=== PATIENT | male | born 1960 | race Caucasian/White ===

== ENCOUNTER 2020-09-20 14:17 | Emergency (ER) | payer BC, OTHER ==
--- OUTSIDE RECORDS SUMMARY | 2020-09-20 14:19 | XMS REPORT | Continuity of Care Document ---
:1960 Author Organization [facility] t Address [address] [place] [address] Care Team Providers Name Role Phone Asked, Pcp Primary Care Physician Unavailable Keren MCGRATH Attending Clinician 2, Lab Attending Clinician Unavailable Doctor Unassigned, Name Attending Clinician Unavailable Problems Condition Condition Condition Status Onset Resolution Last Treating Co mments Source Name Details Category Date Date Treatment Clinician Date Status Status Disease Active Methodi post left post left 7-19 st hip hip 00:00: Hospita replacemen replacemen 00 l t t Arthritis Arthritis Disease Active Met hodi of left of left 6-28 st hip hip 00:00: Hospita 00 l Allergies, Adverse Reactions, Alerts Allergy Allergy Status Severity Reaction(s) Onset Inactive Treating Comm ents Source Name Type Date Date Clinician Ragweed Propensi Active Unknown Method i Pollen ty to Reaction 5-19 st adverse 00:00: Hospita reaction 00 l s to drug Lisinopr Propensi Active Other (See 2014-02 Me thodi il ty to Comments) 2- st adverse 00:00: Hospita reaction 00 l s to drug Losartan Propensi Active Other (See 2014-02 Me thodi ty to Comments) 2-14 st adverse 00:00: Hospita reaction 00 l s to drug Iodine Propensi Active Swelling Pt states Met hodi ty to 8-[address] adverse 00:00: allergic Hospita reaction 00 to shrimp l s to (lips & drug mouth swell), but states topical iodine is not a problem Social History Social Habit Start Date Stop Date Quantity Comments Source Tobacco use and 2019-07-12 2019-07-12 Never used [facility] 00:00:00 00:00:00 Hospital Alcohol intake 2019-07-12 2019-07-12 Current drinker [facility] dist 00:00:00 00:00:00 of alcohol Hospital (finding) Sex Assigned At [birth year] [facility] 00:00:00 00:00:00 Hospital Smoking Status Start Date Stop Date Source Never smoker [facility] Medications Ordered Filled Start Stop Current Ordering Indication Dosage Frequency Signature Comments Components Source Medication Medication Date Date Medication? Clinician (SIG) Name Name testyoon Yes Q14D Inject Meth yamileth e cypionate 08-[address] (DEPOTESTOT 18:36: shoulder, H ospita ERONE 21 thigh, or l CYPIONATE) buttocks 200 mg/mL every 14 injection (fourteen) days. doxazosin Yes 4mg QD Take 4 mg Met hodi (CARDURA) [address] MG tablet 18:36: nightly. Hosp suzie 21 l UNABLE TO Yes adipax for Me thodi FIND [address] 18:36: Hospita 21 l citalopram Yes 20mg QD Take 20 mg M ethodi (CeleXA) 20 7-[address] MG tablet 18:36: daily. Hospit a 21 l Procedures This patient has no known procedures. Plan of Care Planned Activity Planned Date Details Comments Source Future Scheduled Test COVID-19 VACCINE (1) [facility] [code = COVID-19 VACCINE (1)] Future Scheduled Test Hepatitis C screening [facility] (procedure) [code = 653887287] Future Scheduled Test COLONOSCOPY SCREENING [facility] [code = COLONOSCOPY SCREENING] Future Scheduled Test SHINGLES VACCINES (#1) [facility] [code = SHINGLES VACCINES (#1)] Future Scheduled Test INFLUENZA VACCINE [code [facility] = INFLUENZA VACCINE] Encounters Start End Encounter Admission Attending Care Care Encounter Source Date/Time Date/Time Type Type Clinicians Facility Department ID 2020-09-18 2020-09-18 Patient Keren MEBAILEY 1.2.840.114 [id number] 00:00:00 00:00:00 Secure Msg Stephen Hernandez [id number] [place] [id number] Professio [phone] [address] 2020-09-05 2020-09-05 Patient [facility] 1.2.840.114 [id number] 00:00:00 00:00:00 Secure Msg Stephen Heranndez [id number] [place] [id number] Professio [phone] [address] 2020-09-04 2020-09-[facility] 1.[facility].114 [id number] 00:00:00 00:00:00 Stephen Hernandez [id number] [place] [id number] Professio [phone] [address] 2020-08-14 2020-08-14 [facility] 1.2.840.114 [id number] 07:48:15 09:36:28 ne Visit Stephen Hernandez [id number] [place] [id number] Professio [phone] [address] 2020-08-06 2020-08-06 [facility] 1.2.840.114 [id number] 00:00:00 00:00:00 Stephen Hernandez [id number] [place] [id number] Professio [phone] [address] 2020-08-01 2020-08-01 [facility] 1.2.840.114 [id number] 00:00:00 00:00:00 Secure Msg Stephen Hernandez [id number] [place] [id number] Professio [phone] [address] 2020-07-18 2020-07-18 [facility] 1.2.840.114 [id number] 08:11:00 10:04:57 ne Visit Stephen Hernandez [id number] [place] [id number] Professio [phone] [address] 2020-07-17 2020-07-17 Telephone [facility] 1.2.840.114 [id number] 00:00:00 00:00:00 Stephen Hernandez [id number] [place] [id number] Professio [phone] [address] 2020-06-19 2020-06-19 Refill [facility] 1.2.840.114 [id number] 00:00:00 00:00:00 Stephen David [id number] [place] [id number] Professio [phone] [address] 2020-06-08 2020-06-08 [facility] Grader 2, Adc Lab [facility] 1.2.840.114 [id number] 14:33:28 14:48:28 Alexus Hernandez [id number] [place] [id number] Professio [phone] [address] 2020-05-14 2020-05-14 Refill [facility] 1.2.840.114 [id number] 00:00:00 00:00:00 Stephen David [id number] [place] [id number] Professio [phone] [address] 2020-05-11 2020-05-11 Patient [facility] 1.2.840.114 [id number] 00:00:00 00:00:00 Secure Msg Stephen David [id number] [place] [id number] Professio [phone] [address] 2020-04-05 2020-04-05 Patient [facility] 1.2.840.114 [id number] 00:00:00 00:00:00 Secure Msg Stephen Hernandez [id number] [place] [id number] Professio [phone] [address] 2020-04-04 2020-04-04 Refill [facility] 1.2.840.114 [id number] 00:00:00 00:00:00 Stephen Hernandez [id number] [place] [id number] Profarsh [phone] [address] 2020-03-15 2020-03-15 Office Keren [facility] 1.2.840.114 [id number] 10:09:04 11:39:55 Visit Stephen Hernandez [id number] [place] [id number] Profarsh [id number] [address] 2020-01-23 2020-01-23 Orders Doctor JW 1.2.840.114 [id number] 00:00:00 00:00:00 Only Unassigned, OCTAVIO [id number] [place] [facility] [id number] [id number] 2019-07-12 2019-07-12 Outpatient [facility] [id number] [place] 00:00:00 00:00:[address] 2019-07-12 2019-07-12 Outpatient [facility] [id number] [place] 00:00:00 00:00:[address] Results This patient has no known results.
--- NOTE | 2020-09-20 15:00 | EDPHYS ---
Physician Documentation [facility] Name: Landry Chamberlain Jr Age: 60 yrs Sex: Male : 1960 Arrival Date: 09/20/2020 Time: 14:18 Bed 2 Private MD: ED Physician Julio Ho HPI: 09/20 14:53 This 60 yrs old Male presents to ER via EMS with complaints of Suicidal marisa Ideation. 14:53 The patient presents to the emergency department with anxiety, depression, suicide marisa ideation, and the patient has a plan, to shoot self. Onset: The symptoms/episode began/occurred 2 day(s) ago. Past psychiatric history: Prior diagnosis: depression. Associated signs and symptoms: Pertinent positives; suicide ideation. Severity of symptoms: At their worst the symptoms were moderate severe in the emergency department the symptoms are unchanged. The patient has not experienced similar symptoms in the past. Historical: - Allergies: 14:23 unknown BP med; iw - Home Meds: 14:23 citalopram oral [Active]; phentermine oral [Active]; iw - PMHx: 14:23 Anxiety; adhd; iw 14:24 enlarged prostate; iw - Immunization history:: Adult Immunizations up to date. - Family history:: not pertinent. - Social history:: Smoking status: Patient denies any tobacco usage or history of. Patient uses alcohol. ROS: 14:53 Constitutional: Negative for fever, chills, and weight loss, Eyes: Negative for injury, marisa pain, redness, and discharge, ENT: Negative for injury, pain, and discharge, Neck: Negative for injury, pain, and swelling, Cardiovascular: Negative for chest pain, palpitations, and edema, Respiratory: Negative for shortness of breath, cough, wheezing, and pleuritic chest pain, Abdomen/GI: Negative for abdominal pain, nausea, vomiting, diarrhea, and constipation, Back: Negative for injury and pain, : Negative for injury, bleeding, discharge, and swelling, MS/Extremity: Negative for injury and deformity, Skin: Negative for injury, rash, and discoloration, Neuro: Negative for headache, weakness, numbness, tingling, and seizure, Allergy/Immunology: Negative for hives, rash, and allergies, Endocrine: Negative for neck swelling, polydipsia, polyuria, polyphagia, and marked weight changes, Hematologic/Lymphatic: Negative for swollen nodes, abnormal bleeding, and unusual bruising. 14:53 Psych: Positive for anxiety, depression, suicidal ideation. Exam: 14:53 Constitutional: This is a well developed, well nourished patient who is awake, alert, marisa and in no acute distress. Head/Face: Normocephalic, atraumatic. Eyes: Pupils equal round and reactive to light, extra-ocular motions intact. Lids and lashes normal. Conjunctiva and sclera are non-icteric and not injected. Cornea within normal limits. Periorbital areas with no swelling, redness, or edema. ENT: Nares patent. No nasal discharge, no septal abnormalities noted. Tympanic membranes are normal and external auditory canals are clear. Oropharynx with no redness, swelling, or masses, exudates, or evidence of obstruction, uvula midline. Mucous membranes moist. Neck: Trachea midline, no thyromegaly or masses palpated, and no cervical lymphadenopathy. Supple, full range of motion without nuchal rigidity, or vertebral point tenderness. No Meningismus. Chest/axilla: Normal chest wall appearance and motion. Nontender with no deformity. No lesions are appreciated. Cardiovascular: Regular rate and rhythm with a normal S1 and S2. No gallops, murmurs, or rubs. Normal PMI, no JVD. No pulse deficits. Respiratory: Lungs have equal breath sounds bilaterally, clear to auscultation and percussion. No rales, rhonchi or wheezes noted. No increased work of breathing, no retractions or nasal flaring. Abdomen/GI: Soft, non-tender, with normal bowel sounds. No distension or tympany. No guarding or rebound. No evidence of tenderness throughout. Back: No spinal tenderness. No costovertebral tenderness. Full range of motion. Male : Normal genitalia with no discharge or lesions. Skin: Warm, dry with normal turgor. Normal color with no rashes, no lesions, and no evidence of cellulitis. MS/ Extremity: Pulses equal, no cyanosis. Neurovascular intact. Full, normal range of motion. Neuro: Awake and alert, GCS 15, oriented to person, place, time, and situation. Cranial nerves II-XII grossly intact. Motor strength 5/5 in all extremities. Sensory grossly intact. Cerebellar exam normal. Normal gait. 14:53 Psych: Behavior/mood is suicidal, Affect is flat, Oriented to person, place, time, Judgement / Insight is normal. 15:00 ECG was reviewed by the Attending Physician. [facility] Vital Signs: 14:30 BP 161 / 88; Pulse 84; Resp 18; Pulse Ox 100% ; bp 15:30 BP 146 / 90; Pulse 83; Resp 17; Pulse Ox 95% ; bp 22:00 BP 150 / 80; Pulse 60; Resp 18; Temp 98; Pulse Ox 99% ; ea MDM: 14:20 Patient medically screened. marisa 14:57 Differential diagnosis: depression. Data reviewed: vital signs, nurses notes, lab test [facility] result(s). Data interpreted: threat monitoring analyst: not applicable for this patient encounter. rate is 75 beats/min, rhythm is regular, Pulse oximetry: on room air is 100 %. Test interpretation: by ED physician or midlevel provider: ECG, plain radiologic studies. Counseling: I had a detailed discussion with the patient and/or guardian regarding: the historical points, exam findings, and any diagnostic results supporting the discharge/admit diagnosis, lab results, the need to transfer to another facility, for higher level of care, [facility] does not immediately have the required specialist. 09/20 14:21 Order name: Acetaminophen [facility] 09/20 14:21 Order name: Basic Metabolic Panel [facility] 09/20 14:21 Order name: CBC with Diff [facility] 09/20 14:21 Order name: ETOH Level [facility] 09/20 14:21 Order name: Hepatic Function [facility] 09/20 14:21 Order name: PT-INR; Complete Time: 16:38 [facility] 09/20 14:21 Order name: Ptt, Activated; Complete Time: 16:38 [facility] 09/20 14:21 Order name: Salicylate; Complete Time: 16:38 [facility] 09/20 14:21 Order name: Urine Drug Screen; Complete Time: 16:38 [facility] 09/20 14:21 Order name: Acetaminophen Level; Complete Time: 16:38 [facility] 09/20 14:21 Order name: Basic Metabolic Panel; Complete Time: 16:38 [facility] 09/20 14:21 Order name: CBC with Automated Diff; Complete Time: 16:38 [facility] 09/20 14:21 Order name: Alcohol Serum/Plasma; Complete Time: 16:38 [facility] 09/20 14:21 Order name: Liver (Hepatic) Function; Complete Time: 16:38 [facility] 09/20 14:21 Order name: EKG; Complete Time: 14:21 [facility] 09/20 14:21 Order name: EKG - Nurse/Tech; Complete Time: 14:28 [facility] 09/20 14:21 Order name: IV Saline Lock; Complete Time: 14:28 [facility] 09/20 14:21 Order name: Labs collected and sent; Complete Time: 15:10 [facility] 09/20 14:21 Order name: Suicide Precautions; Complete Time: 14:28 [facility] 09/20 14:21 Order name: Urine Dipstick-Ancillary (obtain specimen); Complete Time: 17:40 [facility] 09/20 16:08 Order name: Urine Dipstick-Ancillary [facility] 09/20 18:34 Order name: SARS-COV-2 RT PCR; Complete Time: 19:47 EDMS EC:00 Rate is 77 beats/min. Rhythm is regular. QRS [place] is Normal. CA interval is normal. QRS marisa interval is normal. QT interval is normal. No Q waves. T waves are Normal. No ST changes noted. Clinical impression: NSR w/ Non-specific ST/T Changes and No evidence of ischemia. Interpreted by me. Reviewed by me. Administered Medications: 15:15 Drug: NS 0.9% 1000 ml Route: IV; Rate: 1 bolus; Site: right forearm; bp 16:27 Follow up: IV Status: Completed infusion; IV Intake: 1000ml bp 15:15 Drug: Ativan (LORazepam) 1 mg Route: IVP; Site: right forearm; bp 16:17 Follow up: Response: No adverse reaction bp 18:52 Not Given (Other Intervention Used): Ativan (LORazepam) 1 mg IVP once bp 18:52 Drug: Ativan (LORazepam) 2 mg Route: PO; bp Disposition Summary: 09/20/20 15:00 Transfer Ordered Transfer Location: Psych Facility marisa Reason: Higher level of care marisa Condition: Stable marisa Problem: new marisa Symptoms: have improved marisa Accepting Physician: to psych(09/20/20 22:01) ea Diagnosis - Suicidal ideations marisa - Major depressive disorder, single episode, unspecified marisa Forms: - Medication Reconciliation Form marisa - SBAR form marisa Signatures: Dispatcher [employer] EDLA Julio Ho MD MD cha Williams, Irene, RN RN iw Antunez, Elena, RN RN ea Osman, Anthony, RN RN bp Corrections: (The following items were deleted from the chart) 14:24 14:23 PMHx: emlarged prostate; iw iw 17:24 16:27 CORONAVIRUS+ ordered. EDMS EDMS 22:01 15:00 to anton cunningham ea
--- NOTE | 2020-09-20 15:00 | ER ---
[facility]'s [facility] Name: Landry Chamberlain Jr Age: 60 yrs Sex: Male : 1960 Arrival Date: 09/20/2020 Time: 14:18 Bed 2 Private MD: Diagnosis: Suicidal ideations;Major depressive disorder, single episode, unspecified Presentation: 09/20 14:20 Chief complaint: EMS states: approx 90 minutes ago pt took 14 tabs of tylenol with iw codeine, texted his friend that he was suicidal, PD was called to scene, pt had a loaded gun and stated that he would try again when he leaves the hospital. Coronavirus screen: At this time, the client does not indicate any symptoms associated with coronavirus-19. Ebola Screen: Patient negative for fever greater than or equal to 101.5 degrees Fahrenheit, and additional compatible Ebola Virus Disease symptoms Patient denies exposure to infectious person. Patient denies travel to an Ebola-affected area in the 21 days before illness onset. No symptoms or risks identified at this time. Initial Sepsis Screen: Does the patient meet any 2 criteria? No. Patient's initial sepsis screen is negative. Does the patient have a suspected source of infection? No. Patient's initial sepsis screen is negative. Risk Assessment: Do you want to hurt yourself or someone else? Patient reports desire/thoughts of hurting themselves or someone else. Provider notified. Onset of symptoms was September 20, 2020. 14:20 Method Of Arrival: EMS: [facility] iw 14:20 Acuity: JESSICA 2 iw Triage Assessment: 14:30 General: Appears distressed, uncomfortable, unkempt, Behavior is agitated, anxious, bp uncooperative. Pain: Denies pain. EENT: No deficits noted. Neuro: Level of Consciousness is awake, alert, obeys commands, Oriented to person, place, time, situation. Cardiovascular: No deficits noted. Parent/caregiver reports patient has had. GI: No signs and/or symptoms were reported involving the gastrointestinal system. : No signs and/or symptoms were reported regarding the genitourinary system. Derm: No deficits noted. Musculoskeletal: No deficits noted. 14:30 Respiratory: No deficits noted. bp Historical: - Allergies: 14:23 unknown BP med; iw - Home Meds: 14:23 citalopram oral [Active]; phentermine oral [Active]; iw - PMHx: 14:23 Anxiety; adhd; iw 14:24 enlarged prostate; iw - Immunization history:: Adult Immunizations up to date. - Family history:: not pertinent. - Social history:: Smoking status: Patient denies any tobacco usage or history of. Patient uses alcohol. Screenin:30 Abuse screen: Denies threats or abuse. Denies injuries from another. Nutritional bp screening: No deficits noted. Tuberculosis screening: No symptoms or risk factors identified. Fall Risk None identified. Assessment: 14:30 General: SEE TRIAGE NOTE. bp 15:18 Reassessment: PT TEARFUL, STATING "YOU NEED TO LET ME GO." [place] EXPLAINED TO PT, BUT PT bp REFUSING TEACHING. 17:38 Reassessment: LIZZY ZENG CALLED. PT ELOPING FROM FACILITY. COUNSELED TO REMAIN BY STAFF bp AND REMINDED OF [place], BUT REFUSING TO RETURN TO ROOM. 17:41 Reassessment: [employer]. iw 17:51 Reassessment: PT RETURNED TO ED2 BY COMBINED [employer] AND [employer] AFTER CONFRONTATION NEAR ER bp EXIT. PT THREATENING PD AND RE-AFFIRMING HIS WISH TO LEAVE. 17:55 Reassessment: Pt escorted back to ER bed 2 with [employer] , pt more cooperative at this iw time, pt verbalizes understanding for need to be transferred, daughter at bedside. 18:18 Reassessment: MD AT B/S TO ASSISTANT PT. PT AGREES TO REMAIN FOR PSYCH TRANSFER. bp 19:00 Reassessment: Patient and/or family updated on plan of care and expected duration. Pain ea level reassessed. Patient is alert, oriented x 3, equal unlabored respirations, skin warm/dry/pink. 20:31 Reassessment: Patient appears in no apparent distress at this time. Patient and/or jb4 family updated on plan of care and expected duration. Pain level reassessed. Patient is alert, oriented x 3, equal unlabored respirations, skin warm/dry/pink. 21:58 Reassessment: Patient and/or family updated on plan of care and expected duration. Pain ea level reassessed. Patient is alert, oriented x 3, equal unlabored respirations, skin warm/dry/pink. EMS at bedside, pt left ED via stretcher per EMS, pt tolerating well. Psych: 19:00 [place] Suicide Severity Screening: In the past month, have you wished you were ea or wished you could go to sleep and not wake up? Patient responds "yes.". Subjective: Having thoughts of suicide. Objective: Patient is cooperative. Interventions: Removed personal items and placed in bag. Searched person for dangerous items. Safety Checks: Personal items have been removed. Door is open. Visitors are present. Commitment: Patient will be an involuntary commitment. Vital Signs: 14:30 BP 161 / 88; Pulse 84; Resp 18; Pulse Ox 100% ; bp 15:30 BP 146 / 90; Pulse 83; Resp 17; Pulse Ox 95% ; bp 22:00 BP 150 / 80; Pulse 60; Resp 18; Temp 98; Pulse Ox 99% ; ea ED Course: 14:18 Patient arrived in ED. iw 14:20 Julio Ho MD is Attending Physician. marisa 14:22 Triage completed. iw 14:22 Arm band placed on. iw 14:28 Anthony Brewer, RN is Primary Nurse. bp 15:13 Liver (Hepatic) Function Sent. mh5 15:13 Basic Metabolic Panel Sent. mh5 15:13 CBC with Automated Diff Sent. mh5 15:14 Patient has correct armband on for positive identification. Bed in low position. Call [facility] light in reach. Side rails up X2. Warm blanket given. court recording monitor on. Pulse ox on. NIBP on. 15:14 Alcohol Serum/Plasma Sent. mh5 15:14 Acetaminophen Level Sent. mh5 15:14 Acetaminophen Sent. mh5 15:14 Basic Metabolic Panel Sent. mh5 15:14 CBC with Diff Sent. mh5 15:14 ETOH Level Sent. mh5 15:14 Hepatic Function Sent. mh5 15:14 PT-INR Sent. mh5 15:14 Ptt, Activated Sent. mh5 15:14 Salicylate Sent. mh5 15:15 Maintain EMS IV. Dressing intact. Site clean \\T\\ dry. 5 15:16 Initial lab(s) drawn, by me, sent to lab. EKG done, by ED staff, reviewed by Julio Ho MD COVID swab sent to lab. 15:27 Pt information, to include pt demographics, clinical information, and available lab em1 results, faxed to [facility] in an attempt to initiate transfer. 17:38 IV discontinued, bleeding controlled, No redness/swelling at site. Pressure dressing bp applied. 17:42 pt info, to include pt demographics and clinical information faxed to various [place] [id number] facilities in an attempt to initiate transfer. 20:49 No provider procedures requiring assistance completed. ea Administered Medications: 15:15 Drug: NS 0.9% 1000 ml Route: IV; Rate: 1 bolus; Site: right forearm; bp 16:27 Follow up: IV Status: Completed infusion; IV Intake: 1000ml bp 15:15 Drug: Ativan (LORazepam) 1 mg Route: IVP; Site: right forearm; bp 16:17 Follow up: Response: No adverse reaction bp 18:52 Not Given (Other Intervention Used): Ativan (LORazepam) 1 mg IVP once bp 18:52 Drug: Ativan (LORazepam) 2 mg Route: PO; bp Intake: 16:27 IV: 1000ml; Total: 1000ml. bp Outcome: 15:00 ER care complete, transfer ordered by . marisa 22:00 Transferred by ground EMS to other acute care facility: [facility] . Transfer ea form completed. 22:00 Condition: stable 22:00 Discharge instructions given to patient, Instructed on the need for transfer. 22:01 Patient left the ED. ea Signatures: Julio Ho MD MD cha Williams, Irene, RN Randall Barnett [facility] Farrukh Noel, RN Di Chapa [facility] Patricia Kiser RN RN ea Peltier, Brian, RN RN bp Corrections: (The following items were deleted from the chart) 14:24 14:23 PMHx: emlarged prostate; [facility] 15:25 14:30 Respiratory: Patient placed CPAP: bp bp
[2020-09-20 15:26] LABS: Absolute Lymphocytes (CBC) 1.8 K/uL (0.7-4.9); Basophils % 0.4 % (0-1.3); Hematocrit 39.9 % (39.6-49.0); Lymphocytes % 25.9 % (15.3-44.8); MPV 9.1 fL (7.6-11.3); RBC Red Blood Cell Count 4.15 M/uL (4.33-5.43)
[2020-09-20] MEDS ORDERED: LORazepam 2 MG/ML VIAL ONE (15:35)
[2020-09-20] MEDS ORDERED: NA CHLORIDE 0.9% 1,000 ML ONE (15:35)
[2020-09-20 15:46] LABS: Sodium Level 142 mmol/L (136-145)
[2020-09-20 15:47] LABS: ALT/SGPT 37 U/L (12-78); AST/SGOT 18 U/L (15-37); Albumin 3.8 g/dL (3.4-5.0); Alkaline Phosphatase 61 U/L (45-117); BUN Blood Urea Nitrogen 18 mg/dL (7-18); Bicarbonate 30 mmol/L (21-32); Bilirubin Direct 0.1 mg/dL (0-0.2); Bilirubin Total 0.5 mg/dL (0.2-1.0); Glucose Level 88 mg/dL (74-106); Potassium 3.8 mmol/L (3.5-5.1); Protein, Total 7.2 g/dL (6.4-8.2)
[2020-09-20 16:08] LABS: Urine Blood Negative (Negative); Urine Glucose Negative (Negative); Urine Protein Negative (Negative); Urine Specific Gravity 1.015 (1.005-1.030)
[2020-09-20 16:24] LABS: Barbiturates NEGATIVE (NEGATIVE); Benzodiazepines NEGATIVE (NEGATIVE); Cocaine NEGATIVE (NEGATIVE); METHAMPHETAM NEGATIVE (NEGATIVE); Methadone NEGATIVE (NEGATIVE); Opiates NEGATIVE (NEGATIVE); Phencyclidine NEGATIVE (NEGATIVE); THC Cannibis NEGATIVE (NEGATIVE)
[2020-09-20] MEDS ORDERED: LORAZEPAM 1 MG TABLET ONE (19:12)
[2020-09-21 02:46] VITALS: BP 150/80; TEMP 98; O2SAT 99
== END 2020-09-20 22:01 ==
LOC: ER 14:17
DX: R45.851 Suicidal ideations (principal); F32.9 Major depressive disorder, single episode, unspecified; Z20.822 Contact with and (suspected) exposure to COVID-19
CPT/HCPCS: 96361; 93005; 85025; 80048; 36415; 80320; 80329 ×2; 85610; 80076; 85730; 81003; 80307; 96374; 99285; U0003; J7030

== ENCOUNTER 2021-09-21 14:31 | Emergency (ER) | payer BC, OTHER ==
[2021-09-21] MEDS ORDERED: ONDANSETRON 4 MG/2 ML VIAL ONE (15:19)
[2021-09-21] MEDS ORDERED: MORPHINE 4 MG/ML SYR ONE (15:19)
[2021-09-21 15:24] LABS: Absolute Lymphocytes (CBC) 2.3 K/uL (0.7-4.9); Hematocrit 36.7 % (39.6-49.0); Lymphocytes % 31.2 % (15.3-44.8); MCV 95.9 fL (80-100); MPV 9.3 fL (7.6-11.3); RBC Red Blood Cell Count 3.83 M/uL (4.33-5.43)
[2021-09-21 15:43] LABS: Albumin 3.9 g/dL (3.4-5.0); Bilirubin Total 0.7 mg/dL (0.2-1.0); Potassium 3.7 mmol/L (3.5-5.1); Protein, Total 7.2 g/dL (6.4-8.2); Troponin High Sensitivity 14.2 pg/mL (<58.9)
--- NOTE | 2021-09-21 15:46 | RAD REPORT ---
EXAM DESCRIPTION: CT - Thorax W/ Con - 09/21/2021 3:35 pm CLINICAL HISTORY: Chest pain COMPARISON: None TECHNIQUE: Computed axial tomography of the chest was obtained. 100 cc Isovue 300 was administered i ntravenously. All CT scans are performed using dose optimization technique as appropriate and may include automated exposure control or mA/KV adjustment according to patient size. FINDINGS: No pulmonary contusion. Calcified granuloma right lung. No mediastinal hematoma. A pleural effusion is not present. A pericardial effusion is not seen. Fatty liver IMPRESSION: No acute traumatic injury is seen
[2021-09-21] MEDS ORDERED: LIDOCAINE 4% PATCH ONE (15:52)
[2021-09-21] MEDS ORDERED: METHOCARBAMOL 1,000 MG/10 ML VIAL IV ONE (16:06)
[2021-09-21] MEDS ORDERED: NA CHLORIDE 0.9% 100 ML ONE (16:06)
[2021-09-21] MEDS ORDERED: KETOROLAC 30 MG/ML INJ ONE (16:07)
--- NOTE | 2021-09-21 16:12 | RAD REPORT ---
EXAM DESCRIPTION: Daquan Single View09/21/2021 3:45 pm CLINICAL HISTORY: Chest pain COMPARISON: none FINDINGS: The lungs appear clear of acute infiltrate. The heart is normal size IMPRESSION: No acute abnormalities displayed
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
[2021-09-21 17:37] VITALS: TEMP 98.3
[2021-09-21 17:40] VITALS: BP 136/78; O2SAT 99
--- NOTE | 2021-09-23 12:24 | EKG ---
Test Date: 2021-09-21 Test Time: 14:57:09 Screener And Blender: MB MEASUREMENT RESULTS: Intervals: Rate: 67 CO: 176 QRSD: 102 QT: 396 QTc: 418 [place]: P: 66 CO: 176 QRS: 82 T: 39 INTERPRETIVE STATEMENTS: Normal sinus rhythm Normal ECG Compared to ECG 09/20/2020 14:31:13 No significant changes Electronically Signed On 09-23-21 12:22:00 CDT by Eric Camp
== END 2021-09-21 17:04 | disposition home or self-care (01) ==
LOC: ER 14:31
DX: S20.211A Contusion of right front wall of thorax, initial encounter (principal); V89.2XXA Person injured in unspecified motor-vehicle accident, traffic, initial encounter; F41.9 Anxiety disorder, unspecified; F90.9 Attention-deficit hyperactivity disorder, unspecified type; Z88.8 Allergy status to other drugs, medicaments and biological substances
CPT/HCPCS: 93005; 85025; 36415; 84484; 80053; 83880; 71260; 71045; 96375; 96374; 99285; Q9967; J2001; J2405; J2800

== ENCOUNTER 2021-12-10 04:07 | Emergency (ER) | payer BC, OTHER ==
--- OUTSIDE RECORDS SUMMARY | 2021-12-10 04:13 | XMS REPORT | Continuity of Care Document ---
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 00:00: lar route Eyad as injection 00 every 2 Medical (two) Branch weeks. testosteron 2019-0 Yes [id number] 200mg 1 mL by Univers e cypionate 2-14 Intramuscu it y of 200 mg/mL 00:00: lar route Eyad as injection 00 every 2 Medical (two) Branch weeks. testosteron 2019-0 Yes [id number] 200mg 1 mL by Univers e cypionate 2-14 Intramuscu it y of 200 mg/mL 00:00: lar route Eyad as injection 00 every 2 Medical (two) Branch weeks. testosteron 2019-0 Yes [id number] 200mg 1 mL by Univers e cypionate 2-14 Intramuscu it y of 200 mg/mL 00:00: lar route Eyad as injection 00 every 2 Medical (two) Branch weeks. testosteron Yes Q14D Inject Meth yamileth e cypionate - into the st (DEPOTESTOT 18:36: shoulder, H ospita ERONE 21 thigh, or l CYPIONATE) buttocks 200 mg/mL every 14 injection (fourteen) days. doxazosin Yes 4mg QD Take 4 mg Met hodi (CARDURA) 4 08-[address] MG tablet 18:36: nightly. Hosp suzie 21 l UNABLE TO Yes adipax for Me thodi FIND [address] 18:36: Hospita 21 l citalopram Yes 20mg QD Take 20 mg M ethodi (CeleXA) 20 08-[address] MG tablet 18:36: daily. Hospit a 21 l testosteron Yes Q14D Inject Meth yamileth e cypionate 7-[address] (DEPOTESTOT 13:36: shoulder, H ospita ERONE 21 thigh, or l CYPIONATE) buttocks 200 mg/mL every 14 injection (fourteen) days. doxazosin Yes 4mg QD Take 4 mg Met hodi (CARDURA) 4 08-[address] MG tablet 13:36: nightly. Hosp suzie 21 l UNABLE TO Yes adipax for Me thodi FIND 08-[address] 13:36: Hospita 21 l citalopram Yes 20mg QD Take 20 mg M ethodi (CeleXA) 20 08-[address] MG tablet 13:36: daily. Hospit a 21 l Immunizations Ordered Filled Immunization Date Status Comments [facility] e Immunization Name Name SARS-COV-2 COVID-19 2020-05-20 Completed Unive rsity of MODERNA 12+ YRS 00:00:00 [place] [facility] VACCINE [facility] SARS-COV-2 COVID-19 2020-05-20 Completed Unive rsity of MODERNA 12+ YRS 00:00:00 [place] [facility] VACCINE [facility] SARS-COV-2 COVID-19 2020-05-20 Completed Unive rsity of MODERNA 12+ YRS 00:00:00 [place] [facility] VACCINE [facility] SARS-COV-2 COVID-19 2020-05-20 Completed Unive rsity of MODERNA 12+ YRS 00:00:00 [place] [facility] VACCINE [facility] SARS-COV-2 COVID-19 2020-05-20 Completed Unive rsity of MODERNA 12+ YRS 00:00:00 [place] [facility] VACCINE [facility] SARS-COV-2 COVID-19 2020-05-20 Completed Unive rsity of MODERNA 12+ YRS 00:00:00 [place] [facility] VACCINE Branch SARS-COV-2 COVID-19 2020-05-20 Completed Unive rsity of MODERNA 12+ YRS 00:00:00 [place] [facility] VACCINE [facility] SARS-COV-2 COVID-19 2020-04-22 Completed Unive rsity of MODERNA 12+ YRS 00:00:00 [place] [facility] VACCINE Branch SARS-COV-2 COVID-19 2020-04-22 Completed Unive rsity of MODERNA 12+ YRS 00:00:00 [place] [facility] VACCINE Branch SARS-COV-2 COVID-19 2020-04-22 Completed Unive rsity of MODERNA 12+ YRS 00:00:00 [place] [facility] VACCINE Branch SARS-COV-2 COVID-19 2020-04-22 Completed Unive rsity of MODERNA 12+ YRS 00:00:00 [facility] ical VACCINE Branch SARS-COV-2 COVID-19 2020-04-22 Completed Unive rsity of MODERNA 12+ YRS 00:00:00 [facility] ical VACCINE Branch SARS-COV-2 COVID-19 2020-04-22 Completed Unive rsity of MODERNA 12+ YRS 00:00:00 [facility] ical VACCINE Branch SARS-COV-2 COVID-19 2020-04-22 Completed Unive rsity of MODERNA 12+ YRS 00:00:00 [facility] VACCINE Branch Influenza Virus 2020-03-15 Completed Universit y of Vaccine Quad .5 mL 00:00:00 [place] [facility] IM 6+ MO Branch Influenza Virus 2020-03-15 Completed Universit y of Vaccine Quad .5 mL 00:00:00 [place] [facility] IM 6+ MO Branch Influenza Virus 2020-03-15 Completed Universit y of Vaccine Quad .5 mL 00:00:00 [place] [facility] IM 6+ MO Branch Influenza Virus 2020-03-15 Completed Universit y of Vaccine Quad .5 mL 00:00:00 [place] [facility] IM 6+ MO Branch Influenza Virus 2020-03-15 Completed Universit y of Vaccine Quad .5 mL 00:00:00 [place] [facility] IM 6+ MO Branch Influenza Virus 2020-03-15 Completed Universit y of Vaccine Quad .5 mL 00:00:00 [place] [facility] IM 6+ MO Branch Influenza Virus 2020-03-15 Completed Universit y of Vaccine Quad .5 mL 00:00:00 [place] [facility] IM 6+ MO Branch Td 2020-01-29 Completed University of 00:00:00 [place] [facility] Td 2020-01-29 Completed University of 00:00:00 [place] [facility] Td 2020-01-29 Completed University of 00:00:00 [place] [facility] Td 2020-01-29 Completed University of 00:00:00 [place] [facility] Td 2020-01-29 Completed University of 00:00:00 [place] [facility] Td 2020-01-29 Completed University of 00:00:00 [place] [facility] Td 2020-01-29 Completed University of 00:00:00 [facility] Influenza Virus 2019-01-28 Completed Universit y of Vaccine Quad .5 mL 00:00:00 [place] [facility] IM 6+ MO Branch Influenza Virus 2019-01-28 Completed Universit y of Vaccine Quad .5 mL 00:00:00 [place] [facility] IM 6+ MO Branch Influenza Virus 2019-01-28 Completed Universit y of Vaccine Quad .5 mL 00:00:00 [place] [facility] IM 6+ MO Branch Influenza Virus 2019-01-28 Completed Universit y of Vaccine Quad .5 mL 00:00:00 [place] [facility] IM 6+ MO Branch Influenza Virus 2019-01-28 Completed Universit y of Vaccine Quad .5 mL 00:00:00 [place] [facility] IM 6+ MO Branch Influenza Virus 2019-01-28 Completed Universit y of Vaccine Quad .5 mL 00:00:00 [place] [facility] IM 6+ MO Branch Influenza Virus 2019-01-28 Completed Universit y of Vaccine Quad .5 mL 00:00:00 [facility] 6+ MO [place] Influenza Virus 2018-01-22 Completed Universit y of Vaccine Quad IM 3+ 00:00:00 [facility] Influenza Virus 2018-01-22 Completed Universit y of Vaccine Quad IM 3+ 00:00:00 [facility] Influenza Virus 2018-01-22 Completed Universit y of Vaccine Quad IM 3+ 00:00:00 [facility] Influenza Virus 2018-01-22 Completed Universit y of Vaccine Quad IM 3+ 00:00:00 [facility] Influenza Virus 2018-01-22 Completed Universit y of Vaccine Quad IM 3+ 00:00:00 [facility] Influenza Virus 2018-01-22 Completed Universit y of Vaccine Quad IM 3+ 00:00:00 [facility] Influenza Virus 2018-01-22 Completed Universit y of Vaccine Quad IM 3+ 00:00:00 [facility] TDAP 2015-05-20 Completed University of 00:00:00 [facility] TDAP 2015-05-20 Completed University of 00:00:00 [facility] TDAP 2015-05-20 Completed University of 00:00:00 [facility] TDAP 2015-05-20 Completed University of 00:00:00 [facility] TDAP 2015-05-20 Completed University of 00:00:00 [facility] TDAP 2015-05-20 Completed University of 00:00:00 [facility] TDAP 2015-05-20 Completed University of 00:00:00 [facility] Vital Signs Vital Name Observation Time Observation Value Comments Source Systolic blood 2021-11-01 20:18:00 131 mm[Hg] Univer sity of pressure [facility] Diastolic blood 2021-11-01 20:18:00 78 mm[Hg] Unive rsity of pressure [facility] Heart rate 2021-11-01 20:18:00 88 /min [facility] Body temperature 2021-11-01 20:18:00 36.89 [facility] Respiratory rate 2021-11-01 20:18:00 18 /min [facility] Body height 2021-11-01 20:18:00 185.4 cm [facility] Body weight 2021-11-01 20:18:00 112.537 kg [facility] BMI 2021-11-01 20:18:00 32.73 kg/m2 [facility] Oxygen saturation in 2021-11-01 20:18:00 95 /min [facility] Arterial blood by [facility] Pulse oximetry Branch Procedures This patient has no known procedures. Plan of Care Planned Activity Planned Date Details Comments Source Future Scheduled 2021-10-23 HEPATITIS B VACCINES Met [facility] Test 22:15:26 (1 of 3 - 3-dose series) [code = HEPATITIS B VACCINES (1 of 3 - 3-dose series)] Future Scheduled 2021-10-23 COVID-19 VACCINE (#1) [facility] Test 22:15:26 [code = COVID-19 VACCINE (#1)] Future Scheduled 2021-10-23 Hepatitis C screening [facility] Test 22:15:26 (procedure) [code = 332979592] Future Scheduled 2021-10-23 COLONOSCOPY SCREENING [facility] Test 22:15:26 [code = COLONOSCOPY SCREENING] Future Scheduled 2021-10-23 SHINGLES VACCINES (1 Met [facility] Hospital Test 22:15:26 of 2) [code = SHINGLES VACCINES (1 of 2)] Future Scheduled 2021-10-23 INFLUENZA VACCINE Method [facility] Hospital Test 22:15:26 [code = INFLUENZA VACCINE] Future Scheduled COVID-19 VACCINE (1) Met [facility] Test [code = COVID-19 VACCINE (1)] Future Scheduled Hepatitis C screening [facility] Test (procedure) [code = 373219284] Future Scheduled COLONOSCOPY SCREENING [facility] Test [code = COLONOSCOPY SCREENING] Future Scheduled SHINGLES VACCINES [facility] (#1) [code = SHINGLES VACCINES (#1)] Future Scheduled INFLUENZA VACCINE [facility] Test [code = INFLUENZA VACCINE] Encounters Start End Encounter Admission Attending Care Care Encounter Source Date/Time Date/Time Type Type Clinicians Facility Department ID 2020-12-22 Emergency [facility] [id number] Univers [facility] 2022-02-07 2022-02-07 Outpatient R [facility] [id number] Univers 15:40:00 15:40:00 ADRIENNE luly [facility] 2021-12-07 2021-12-07 A Class Lineman Aldo [facility] Main [facility] 1.2.8 40.114 [id number] Univers 08:15:00 08:30:00 Visit Adrienne Veliz 350.1.13.10 ity [facility] [place] [phone] [facility] 353 [facility] 2021-12-07 2021-12-07 Outpatient R [facility] [id number] Univers 08:15:00 08:15:00 ADRIENNE luly [facility] 2021-11-19 2021-11-19 Patient [facility] 1.2.840.114 [id number] Univers 00:00:00 00:00:00 Secure Msg Adrienne FLORES 350.1.13.10 ity [facility] [place] [id number] Az dical NAL 044 [facility] 2021-11-04 2021-11-04 Telephone [facility] 1.2.840.114 [id number] Univers 00:00:00 00:00:00 Adrienne FLORES 350.1.13.10 i ty of [facility] 4.2.7.2.[place] [id number] Az dical NAL 044 [facility] 2021-11-01 2021-11-01 Outpatient R [facility] [id number] Univers 15:40:00 16:54:07 ADRIENNE montano [facility] 2021-11-01 2021-11-01 Office [facility] 1.2.840.114 [id number] Univers 15:40:00 16:54:07 Visit Adrienne FLORES 350.1.13.10 i ty of [place] [id number] Az dical NAL [address] [place] [address] 2021-11-01 2021-11-01 Orders Doctor JW 1.2.840.114 [id number] Univers 00:00:00 00:00:00 Only Unassigned, OCTAVIO 350.1.13.10 ity of [place] [facility] 4.2.7.2.686 Eyad as [id number] [address] 2021-10-16 2021-10-16 Outpatient R [facility] [id number] Univers 15:40:00 15:40:00 ADRIENNE montano [facility] 2021-09-25 2021-09-25 Refill [facility] 1.2.840.114 [id number] Univers 00:00:00 00:00:00 Adrienne FLORES 350.1.13.10 i ty [place] [id number] Az dical [address] 2021-09-23 2021-09-23 Patient [facility] 1.2.840.114 [id number] Univers 00:00:00 00:00:00 Secure Msg Adrienne FLORES 350.1.13.10 ity of [place] [id number] Az dical NAL 044 [facility] 2021-08-19 2021-08-19 Patient [facility] 1.2.840.114 [id number] Univers 00:00:00 00:00:00 Secure Msg Adrienne FLORES 350.1.13.10 ity [place] [id number] Az dical NAL 225 [facility] 2021-08-18 2021-08-18 [facility] 1.2.840.114 [id number] Univers 00:00:00 00:00:00 Adrienne FLORES 350.1.13.10 i ty of [facility] 4.2.7.2.[place] [id number] Az zelalemzeyad ROMO 044 [facility] 2021-08-04 2021-08-04 [facility] [id number] Univers 17:40:00 17:55:50 REJI ity [facility] 2021-08-04 2021-08-04 Urgent [facility] 1.2.840.114 [id number] Univers 17:40:00 17:55:50 Care [facility] 350.1.13.10 it y [facility] 4.2.7.2.686 Eyad as KEENAN?BLEA [phone] [facility] 370 [facility] OFFICE BUILDING 2021-08-04 2021-08-04 Outpatient R OMAR [facility] [id number] Univers 17:40:00 17:55:50 [facility] 2021-07-23 2021-07-23 Outpatient R TAMRA [facility] [id number] Univers 13:45:00 13:45:00 ADRIENNE luly [facility] 2021-07-23 2021-07-23 A Class Lineman 2, Adc Lab [facility] 1.2.840.114 [id number] Univers 13:45:00 13:45:00 Visit Adrienne Veliz 350.1.13.10 ity of [place] [id number] [facility] 353 [facility] 2021-07-16 2021-07-16 Outpatient R TAMRA [facility] [id number] Univers 16:00:00 17:03:52 ADRIENNE luly [facility] 2021-07-16 2021-07-16 [facility] 1.2.840.114 [id number] Univers 16:00:00 17:03:52 Visit Adrienne FLORES 350.1.13.10 i ty of [place] [id number] Az dical NAL [address] [place] [address] 2021-07-08 2021-07-08 Letter [facility] 1.2.840.114 [id number] Univers 00:00:00 00:00:00 (Out) Adrienne FLORES 350.1.13.10 i ty of [place] [id number] Az dical NAL [address] [place] [address] 2021-06-28 2021-06-28 Patient [facility] 1.2.840.114 [id number] Univers 00:00:00 00:00:00 Secure Msg Adrienne FLORES 350.1.13.10 ity [place] [id number] Az dical NAL [address] [place] [address] 2021-06-10 2021-06-10 Patient [facility] 1.2.840.114 [id number] Univers 00:00:00 00:00:00 Secure Msg Adrienne FLORES 350.1.13.10 ity [place] [id number] Az dicil NAL [address] [place] [address] 2021-05-15 2021-05-15 Outpatient R [facility] [id number] Univers 16:20:00 16:20:00 ADRIENNE [facility] 2021-05-02 2021-05-02 Outpatient R [facility] [id number] Univers 13:00:00 12:52:15 MARIE [facility] 2021-05-01 2021-05-01 Patient [facility] 1.2.840.114 [id number] Univers 00:00:00 00:00:00 Secure Msg Adrienne FLORES 350.1.13.10 [place]y [place] [id number] Az dical NAL [address] [place] [address] 2021-04-30 2021-04-30 Refill [facility] 1.2.840.114 [id number] Univers 00:00:00 00:00:00 Adrienne FLORES 350.1.13.10 i ty of [place] [id number] Az dical NAL 044 [facility] 2021-04-08 2021-04-08 Patient [facility] 1.2.840.114 [id number] Univers 00:00:00 00:00:00 Secure Msg Adrienne FLORES 350.1.13.10 [place]y [place] [id number] Az dical NAL [address] [place] [address] 2021-04-02 2021-04-02 Outpatient R [facility] [id number] Univers 13:00:00 14:26:39 ADRIENNE luly [facility] 2021-04-02 2021-04-02 Office [facility] 1.2.840.114 [id number] Univers 13:00:00 14:26:39 Visit Adrienne FLORES 350.1.13.10 i ty of [place] [id number] [facility] NAL [address] [place] [address] 2021-04-02 2021-04-02 Outpatient R [facility] [id number] Univers 13:00:00 13:00:00 ADRIENNE dusty [facility] 2021-03-27 2021-03-27 Outpatient R [facility] [id number] Univers 13:41:19 23:59:00 ADRIENNE dusty [facility] 2021-03-27 2021-03-27 [facility] 1.2.840.114 [id number] Univers 13:41:19 23:59:00 Encounter Adrienne FLORES 350.1.13.10 ity [facility] 4.2.7.2.[place] [id number] [facility] [address] [place] 2021-03-27 2021-03-27 [facility] 1.2.840.114 [id number] Univers 13:40:38 13:40:38 Encounter Adrienne FLORES 350.1.13.10 ity of [place] 4.2.7.2.686 [facility] [id number] [facility] [address] [place] 2021-03-27 2021-03-27 [facility] [id number] Univers 10:40:00 10:40:00 ADRIENNE dusty [facility] 2021-03-26 2021-03-26 [facility] [id number] Univers 14:59:13 23:59:00 CRAIG montano [facility] 2021-03-26 2021-03-26 [facility] 1.2.840.114 [id number] Univers 14:59:13 23:59:00 Encounter Craig MEYER 350.1.13.10 ity [facility] 4.2.7.2.686 Eyad as KEENAN?BLEA [phone] Az emigdio SMITH 809 [facility] OFFICE [facility] 2021-03-26 2021-03-26 A Class Lineman Lab, [facility] 1.2.840.1 [id number] Univers 14:45:00 15:00:00 Visit Craig Bernal 350.1.13.10 ity of [facility] 4.2.7.2.686 Eyad as KEENAN?BLEA [phone] Az emigdio SMITH 353 [facility] OFFICE [facility] 2021-03-26 2021-03-26 Outpatient [facility] [id number] Univers 14:45:00 14:45:00 CRAIG montano [facility] 2021-03-26 2021-03-26 Office [facility] 1.2.840.114 [id number] Univers 14:00:00 14:42:57 Visit Craig MEYER 350.1.13.10 it y of [place] 4.2.7.2.686 Eyad as KEENAN?BLEA [id number] Az emigdio SMITH 044 [facility] OFFICE [facility] 2021-03-05 2021-03-05 [facility]phone [facility] 1.2.840.114 [id number] Univers 00:00:00 00:00:00 Adrienne FLORES 350.1.13.10 i ty of [place] [id number] Az dical NAL 044 [facility] 2021-02-28 2021-02-28 Patient [facility] 1.2.840.114 [id number] Univers 00:00:00 00:00:00 Secure Msg Adrienne FLORES 350.1.13.10 ity of [place]2.[place] [id number] Az dical NAL [address] [place] [address] 2021-02-28 2021-02-28 Patient [facility] 1.2.840.114 [id number] Univers 00:00:00 00:00:00 Secure Msg Adrienne MARK 350.1.13.10 ity of [place] [phone] Az dic[address] 2021-02-14 2021-02-14 Office [facility] 1.2.840.114 [id number] Univers 15:00:00 15:57:38 Visit Adrienne FLORES 350.1.13.10 i ty of [place].2.[place] [id number] [address] 2021-02-14 2021-02-14 Outpatient R [facility] [id number] Univers 15:00:00 15:57:38 ADRIENNE montano [facility] 2021-02-14 2021-02-14 Outpatient R [facility] [id number] Univers 15:00:00 15:57:38 ADRIENNE montano [facility] 2021-02-14 2021-02-14 Orders Doctor ESCALERA 1.2.840.114 [id number] Univers 00:00:00 00:00:00 Only Unassigned, OCTAVIO 350.1.13.10 ity of [place] [facility] 4.2.7.2.686 Eyad as [id number] [address] 2021-02-12 2021-02-12 Outpatient R [facility] [id number] Univers 16:20:00 16:20:00 ADRIENNE montano [facility] 2021-02-12 2021-02-12 Outpatient R TAMRA [facility] [id number] Univers 16:20:00 16:20:00 ADRIENNE montano [facility] 2021-01-21 2021-01-21 [facility] [id number] Univers 18:40:00 19:02:41 EDWIN montano o f [facility] 2021-01-21 2021-01-21 Urgent [facility] 1.2.840. 114 [id number] Univers 18:30:50 19:02:41 [facility] 350.1.13.10 ity of [facility] 4.2.7.2.686 Eyad as KEENAN?BLEA [id number] [address] MEDICAL OFFICE [facility] 2021-01-21 2021-01-21 Telephone [facility] 1.2.840.114 [id number] Univers 00:00:00 00:00:00 [facility] 350.1.13.10 i ty of [place] 4.2.7.2.686 Eyad as KEENAN?BLEA [id number] [address] OFFICE [facility] 2021-01-21 2021-01-21 Refill [facility] 1.2.840.114 [id number] Univers 00:00:00 00:00:00 [facility] 350.1.13.10 i ty of [place] 4.2.7.2.686 Eyad as KEENAN?BLEA [phone] [address] MEDICAL OFFICE [facility] 2020-11-23 2020-11-23 Outpatient R TAMRA [facility] [id number] Univers 16:00:00 16:00:00 ADRIENNE montano [facility] 2020-11-23 2020-11-23 [facility] 1.2.840.114 [id number] Univers 00:00:00 00:00:00 Secure Msg Adrienne Man[place] 350.1.13.10 ity of [place] [id number] [facility] 044 [facility] 2020-11-05 2020-11-05 Outpatient R NICKOLAS [facility] [id number] Univers 09:00:00 09:00:00 [facility] 2020-10-18 2020-10-18 [facility] [id number] Univers 08:00:00 08:00:00 [facility] 2020-10-10 2020-10-10 Office [facility] [id number] [id number] Univers 14:20:51 14:40:51 Visit Dm Flores 350.1.13.10 ity [facility] 4.2.7.2.[place] [id number] [facility] 085 [facility] 2020-10-10 2020-10-10 Outpatient R DM PAUL [facility] [id number] Univers 14:40:00 14:40:00 JOHN [facility] 2020-10-10 2020-10-10 Orders Doctor JW 1.2.840.114 [id number] Univers 00:00:00 00:00:00 Only Unassigned, OCTAVIO 350.1.13.10 [facility] 4.2.7.2.686 Eyad as [id number] [address] 2020-10-04 2020-10-04 Office [facility] 1.2.840.114 [id number] Univers 14:44:40 17:09:25 Visit Adrienne Flores 350.1.13.10 i ty of [place].2.[place] [phone] [facility] 044 [facility] 2020-10-04 2020-10-04 Outpatient R TAMRA [facility] [id number] Univers 15:00:00 15:00:00 ADRIENNE montano [facility] 2020-09-19 2020-09-19 Outpatient R PAOLA [facility] [id number] Univers 14:30:00 14:30:00 EDWIN daily [facility] 2020-09-18 2020-09-18 Patient Edalhaji, [facility] 1.2.840.114 [id number] Univers 00:00:00 00:00:00 Secure Msg Adrienne Flores 350.1.13.10 ity of [place] [id number] Az dical nal [address] [place] [address] 2020-09-18 2020-09-18 Patient Edemileng, [facility] 1.2.840.114 [id number] 00:00:00 00:00:00 Secure Msg Adrienne [place] 350.1.13.10 [place] 4.2.7.2.686 Professio [id number] [address] 2020-09-05 2020-09-05 Patient Edalhaji, [facility] 1.2.840.114 [id number] Univers 00:00:00 00:00:00 Secure Msg Adrienne Flores 350.1.13.10 it[place] of [place] [phone] Az dicil nal [address] [place] [address] 2020-09-05 2020-09-05 Patient [facility], [facility] 1.2.840.114 [id number] 00:00:00 00:00:00 Secure Msg Adrienne Flores 350.1.13.10 [place] 4.2.7.2.686 Professio [id number] [address] 2020-09-04 2020-09-04 Refill [facility] 1.2.840.114 [id number] Univers 00:00:00 00:00:00 Adrienne [place] 350.1.13.10 i [place] [phone] Az dic[address] 2020-09-04 2020-09-04 Refill [facility] 1.2.840.114 [id number] 00:00:00 00:00:00 Adrienne Flores 350.1.13.10 [place] 4.2.7.2.686 Professio [phone] [address] 2020-08-14 2020-08-14 [facility] [id number] Univers 10:40:00 10:40:00 ADRIENNE montano [facility] 2020-08-14 2020-08-[facility].840.114 [id number] [facility] 07:48:15 09:36:28 ne Visit Adrienne Flores 350.1.13.10 it[place] [phone] [address] 2020-08-14 2020-08-14 [facility] 1.2.840.114 [id number] 07:48:15 09:36:28 ne Visit Adrienne Flores 350.1.13.10 [place] 4.2.7.2.686 Professio [phone] [address] 2020-08-14 2020-08-14 Outpatient R [facility] [id number] Univers 08:55:00 08:55:00 ADRIENNE luly [facility] 2020-08-06 2020-08-06 [facility] 1.2.840.114 [id number] [facility] 00:00:00 00:00:00 Adrienne Flores 350.1.13.10 i [place] [phone] [address] 2020-08-06 2020-08-[facility] 1.2.840.114 [id number] 00:00:00 00:00:00 Adrienne Flores 350.1.13.10 [place] 4.2.7.2.686 Professio [phone] [address] 2020-08-01 2020-08-01 Patient [facility] 1.2.840.114 [id number] Univers 00:00:00 00:00:00 Secure Msg Adrienne Flores 350.1.13.10 it[place] [phone] Az dic[address] 2020-08-01 2020-08-01 Patient [facility] 1.2.840.114 [id number] 00:00:00 00:00:00 Secure Msg Adrienne Mark 350.1.13.10 [place] 4.2.7.2.686 Professio [phone] [address] 2020-07-18 2020-07-18 Telemedici [facility] 1.2.840.114 [id number] [facility] 08:11:00 10:04:57 ne Visit Adrienne Flores 350.1.13.10 ity [facility] [place] [phone] [address] 2020-07-18 2020-07-18 Telemedici [facility] 1.2.840.114 [id number] 08:11:00 10:04:57 ne Visit Adrienne Flores 350.1.13.10 [place] 4..7.2.686 Professio [phone] [address] 2020-07-18 2020-07-18 [facility] [id number] Univers 09:20:00 09:20:00 ADRIENNE montano [facility] 2020-07-17 2020-07-17 Telephone [facility] 1.2.840.114 [id number] [facility] 00:00:00 00:00:00 Adrienne Flores 350.1.13.10 i [place] [phone] [address] 2020-07-17 2020-07-17 Telephone [facility] 1.2.840.114 [id number] 00:00:00 00:00:00 Adrienne Flores 350.1.13.10 [place] 4.2.7.2.686 Professio [phone] [address] 2020-06-19 2020-06-19 Refill [facility] 1.2.840.114 [id number] Univers 00:00:00 00:00:00 Adrienne Flores 350.1.13.10 i [place] [phone] [facility] dical [facility] 044 [facility] 2020-06-19 2020-06-19 [facility] 1.2.840.114 [id number] 00:00:00 00:00:00 Adrienne Flores 350.1.13.10 [place] 4.2.7.2.686 Professio [phone] [address] 2020-06-15 2020-06-15 Outpatient R [facility] [id number] Univers 15:00:00 15:00:00 ity [facility] 2020-06-15 2020-06-15 Outpatient R [facility] [id number] Univers 08:00:00 08:00:00 ity [facility] 2020-06-14 2020-06-14 Outpatient R [facility] [id number] Univers 08:00:00 08:00:[facility] 2020-06-08 2020-06-08 Outpatient [facility] [id number] Univers 16:00:00 16:00:00 ADRIENNE [facility] 2020-06-08 2020-06-08 A Class Lineman 2, Adc Lab [facility] 1.2.840.114 [id number] Univers 14:33:28 14:48:28 Visit Tamra Adrienne Flores 350.1.13.10 ity [place] [phone] Az dical [facility] 353 [facility] 2020-06-08 2020-06-08 A Class Lineman 2, Adc Lab [facility] 1.2.840.114 [id number] 14:33:28 14:48:28 Visit Mark 350.1.13.10 [place] 4.2.7.2.686 Professio [phone] [address] 2020-05-20 2020-05-20 Outpatient [facility] [id number] Univers 15:20:00 15:20:00 ity [facility] 2020-05-14 2020-05-14 [facility] 1.2.840.114 [id number] Univers 00:00:00 00:00:00 Adrienne Flores 350.1.13.10 i ty [place] [phone] Az dic[address] 2020-05-14 2020-05-14 [facility] 1.2.840.114 [id number] [id number] 00:00:00 00:00:00 Adrienne Mark 350.1.13.10 [place] 4.2.7.2.686 Professio [phone] [address] 2020-05-11 2020-05-11 [facility] 1.2.840.114 [id number] Univers 00:00:00 00:00:00 Secure Msg Adrienne [place] 350.1.13.10 ity [facility] 4[place] [phone] [address] 2020-05-11 2020-05-11 Patient [facility] 1.2.840.114 [id number] 00:00:00 00:00:00 Secure Msg Adrienne Flores 350.1.13.10 [place] 4.2.7.2.686 Professio [phone] [address] 2020-04-22 2020-04-22 Outpatient Malik SEARS [facility] [id number] Univers 15:05:00 15:05:00 [facility]AN [facility] 2020-04-05 2020-04-05 Patient [facility] 1.2.840.114 [id number] Univers 00:00:00 00:00:00 Secure Msg Adrienne Flores 350.1.13.10 ity [facility] 4[place].2.[place] [phone] Az dic[address] 2020-04-05 2020-04-05 [facility] 1.2.840.114 [id number] 00:00:00 00:00:00 Secure Msg Adrienne Mark 350.1.13.10 [place] 4.2.7.2.686 Professio [phone] [address] 2020-04-04 2020-04-04 [facility] 1.2.840.114 [id number] Univers 00:00:00 00:00:00 Adrienne Mark 350.1.13.10 i ty [place] [phone] Az dic[address] 2020-04-04 2020-04-04 Refill [facility] 1.2.840.114 [id number] 00:00:00 00:00:00 Adrienne Mark 350.1.13.10 [place] 4.2.7.2.686 Professio [phone] [address] 2020-03-15 2020-03-15 Office [facility] 1.2.840.114 [id number] [facility] 10:09:04 11:39:55 Visit Adrienne Flores 350.1.13.10 i ty [place] [phone] [address] 2020-03-15 2020-03-15 Office [facility] 1.2.840.114 [id number] 10:09:04 11:39:55 Visit Adrienne Flores 350.1.13.10 [place] 4.2.7.2.686 Professio [phone] [address] 2020-03-15 2020-03-15 Outpatient Malik POZO [facility] [id number] Univers 09:15:00 09:15:00 SABINO montano [facility] 2020-02-23 2020-02-23 Telemedici [facility] 1.2.840.114 [id number] [facility] 14:10:19 15:44:25 ne Visit Adrienne Flores 350.1.13.10 it[place] [phone] Me dic[address] 2020-02-23 2020-02-23 Outpatient R TAMRA [facility] [id number] Univers 14:40:00 14:40:00 PETER itluly of [facility] 2020-02-23 2020-02-23 [facility] 1.2.840.114 [id number] Univers 00:00:00 00:00:00 Secure Msg Adrienne Flores 350.1.13.10 it[place] [phone] Az dic[address] 2020-02-14 2020-02-14 [facility] 1.2.840.114 [id number] Univers 00:00:00 00:00:00 Secure Msg Adrienne Flores 350.1.13.10 it[place] of [place] [phone] [address] 2020-01-31 2020-01-31 Patient [facility] 1.2.840.114 [id number] Univers 00:00:00 00:00:00 Secure Msg Adrienne Flores 350.1.13.10 [place] of [place] [phone] [address] 2020-01-30 2020-01-30 Telephone [facility] 1.2.840.114 [id number] Univers 00:00:00 00:00:00 Adrienne Flores 350.1.13.10 i ty [place] [phone] [address] 2020-01-29 2020-01-29 Emergency Barrett, [facility] 1.2.873.350 [id number] Univers 09:18:00 11:36:00 William Flores 350.1.13.10 i ty [place].2.[place] [phone] [address] 2020-01-29 2020-01-29 Nurse Nurse, [facility] 1.2 .840.114 [id number] Univers 08:59:11 09:10:12 Visit Unknown, Attending Health 350.1.13.10 ity of Reji Nelson 4.2.7.2.686 [place] Profess[place] [phone] [address] 2020-01-29 2020-01-29 Outpatient R UNKNOWN, [facility] [id number] Univers 09:00:00 09:00:00 ATTENDING ity [facility] 2020-01-29 2020-01-29 Outpatient R UNKNOWN, [facility] [id number] Univers 09:00:00 09:00:00 [facility] 2020-01-27 2020-01-27 Telephone [facility] 1.2.840.114 [id number] Univers 00:00:00 00:00:00 Adrienne Flores 350.1.13.10 i ty [place] [phone] [address] 2020-01-25 2020-01-25 Telephone [facility] 1.2.840.114 [id number] Univers 00:00:00 00:00:00 Adrienne Flores 350.1.13.10 i ty [place] [phone] [facility] 2020-01-24 2020-01-24 Laboratory Lab, Adc Fam Pob I [facility] 1.2. 840.114 [id number] Univers 10:08:23 10:28:23 Only Ginnajulianna Paige [facility] 350.1.13.10 ity of [place] 4.2.7.2.686 Eyad as Professio [phone] [address] 2020-01-24 2020-01-24 Outpatient R [facility] [id number] Univers 10:20:00 10:20:00 ity [facility] 2020-01-24 2020-01-24 Patient [facility] 1.2.840.114 [id number] Univers 00:00:00 00:00:00 Secure Msg Adrienne Flores 350.1.13.10 it[place] of [place] [phone] Az dical nal 044 [facility] 2020-01-23 2020-01-23 Orders Doctor JW 1.2.840.114 [id number] Univers 00:00:00 00:00:00 Only Unassigned, OCTAVIO 350.1.13.10 ity of [place] [facility] 4.2.7.2.686 Eyad as [phone] [address] 2020-01-23 2020-01-23 Orders Doctor JW 1.2.840.114 [id number] 00:00:00 00:00:00 Only Unassigned, OCTAVIO 350.1.13.10 [place] [facility] 4.2.7.2.686 [phone] [facility] 2020-01-10 2020-01-10 Refill [facility] 1.2.840.114 [id number] Univers 00:00:00 00:00:00 Adrienne Flores 350.1.13.10 i ty [place].2.[place] [phone] Az dical nal 044 [facility] 2020-01-10 2020-01-10 Patient [facility] 1.2.840.114 [id number] Univers 00:00:00 00:00:00 Secure Msg Adrienne Flores 350.1.13.10 it[place] of [place].2.[place] [phone] Az dical nal 231 [facility] 2020-01-06 2020-01-06 Outpatient R MIRANDA TAN [facility] [id number] Univers 15:40:00 15:40:00 MIRANDA TAN i ty of [facility] 2020-01-05 2020-01-05 Telephone Britney [facility] 1.2.896.514 [id number] Univers 00:00:00 00:00:00 Miranda Flores 350.1.13.10 i [place] [phone] Az dical nal 085 [facility] 2019-12-16 2019-12-16 Outpatient R [facility] [id number] Univers 15:40:00 15:40:00 PETER ity of [facility] 2019-11-29 2019-11-29 Patient [facility] 1.2.840.114 [id number] Univers 00:00:00 00:00:00 Secure Msg Adrienne Flores 350.1.13.10 [place] [phone] Az dical nal [address] [place] [address] 2019-11-28 2019-11-28 Patient [facility] 1.2.840.114 [id number] Univers 00:00:00 00:00:00 Secure Msg Adrienne Flores 350.1.13.10 it[place].2.[place] [phone] Az dical nal [address] [place] [address] 2019-11-25 2019-11-25 [facility] 1.2.159.129 [id number] Univers 00:00:00 00:00:00 Miranda Flores 350.1.13.10 i ty [place] 4[place]2.[place].2.[place] [phone] Az dic[address] 2019-11-21 2019-11-21 Telephone [facility] 1.2.840.114 [id number] Univers 00:00:00 00:00:00 Adrienne Flores 350.1.13.10 i ty [place].2.[place] [phone] Az dicil nal [address] [place] [address] 2019-11-18 2019-11-18 Office [facility] 1.2.840.114 [id number] Univers 15:00:17 15:20:17 Visit Miranda Flores 350.1.13.10 i ty [place] 4[place]2.[place].2.[place] [phone] Az dicil nal [address] [place] [address] 2019-11-18 2019-11-18 Outpatient R MIRANDA TAN [facility] 10 [id number] Univers 15:20:00 15:20:00 MIRANDA TAN i ty of [facility] 2019-11-18 2019-11-18 Orders Doctor JW 1.2.840.114 [id number] Univers 00:00:00 00:00:00 Only Unassigned, OCTAVIO 350.1.13.10 [facility] 4.2.7.2.686 Eyad as [phone] [address] 2019-11-15 2019-11-15 Patient [facility] 1.2.840.114 [id number] Univers 00:00:00 00:00:00 Secure Msg Adrienne Mark 350.1.13.10 it[place] of [place] 4[place].2.[place] [phone] [address] 2019-11-08 2019-11-08 Patient [facility] 1.2.840.114 [id number] Univers 00:00:00 00:00:00 Secure Msg Adrienne Flores 350.1.13.10 it[place] of [place] 4[place].2.[place] [phone] [address] 2019-11-07 2019-11-07 Patient [facility] 1.2.840.114 [id number] Univers 00:00:00 00:00:00 Secure Msg Adrienne [place] 350.1.13.10 it[place] of [place] 4[place]2.[place].2.[place] [phone] [address] 2019-11-04 2019-11-04 Office [facility] 1.2.840.114 [id number] Univers 16:10:11 16:30:11 Visit Adrienne Flores 350.1.13.10 i ty of [place] 4[place]2.[place].2.[place] [phone] [address] 2019-11-04 2019-11-04 [facility] [id number] Univers 16:20:00 16:20:00 PETER ity of [facility] 2019-11-02 2019-11-02 Patient [facility] 1.2.840.114 [id number] Univers 00:00:00 00:00:00 Outreach [facility] 350.1.13.10 i ty of [place] 4.2.7.2.686 Eyad as Professio [phone] Az dical nal [address] 2019-10-28 2019-10-28 Patient Tam[place], [place] 1.2.840.114 [id number] Univers 00:00:00 00:00:00 Secure Msg Adrienne Mark 350.1.13.10 it[place] 4[place]2.[place].2.[place] [phone] Az dical nal 044 [facility] 2019-10-14 2019-10-14 Outpatient R DM PAUL [facility] [id number] Univers 20:00:00 20:00:00 DM PAUL ity of [facility] 2019-10-14 2019-10-14 A Class Lineman 1, Adc Sleep Lab Bed [facility] 1. 2.840.114 [id number] Univers 14:02:20 16:32:20 Visit Dm Paul 350.1.13. 10 it[place] of [place] 4[place]2.7.2.[place] [phone] [facility] [address] 2019-10-12 2019-10-12 Patient Doctor [facility] 1.2.840.114 [id number] Univers 00:00:00 00:00:00 Secure Msg Unassigned, Health 350.1.13.10 ity of [place] [facility] 4.2.7.2.[place] [facility] [phone] [facility] [address] 2019-10-11 2019-10-11 A Class Lineman Johnathan, Adc Lab Main [facility] 1.2.8 40.114 [id number] Univers 08:57:33 09:12:33 Visit Jim Pruett 350.1.13.10 ity of [place] 4[place]2.[place].2.[place] [phone] Az dical nal 353 [facility] 2019-10-11 2019-10-11 Laboratory Only, Adc Test [facility] 1.2.840. 114 [id number] Univers 08:53:56 09:08:56 Only Bhavesh Garcia 350.1.13.10 it[place] of [place] 4[place]2.[place].2.[place] [phone] [facility] [address] 2019-10-11 2019-10-11 Outpatient R [facility] [id number] Univers 09:00:00 09:00:00 ity of [facility] 2019-10-11 2019-10-11 Outpatient R [facility] [id number] Univers 09:00:00 09:00:00 ity of [facility] 2019-10-11 2019-10-11 Orders Doctor JW 1.2.840.114 [id number] Univers 00:00:00 00:00:00 Only Unassigned, OCTAVIO 350.1.13.10 ity of [place] [facility] 4.2.7.2.686 Eyad as [phone] [facility] [address] 2019-10-11 2019-10-11 [facility] 1.2.840.114 [id number] Univers 00:00:00 00:00:00 Secure Msg Adrienne Flores 350.1.13.10 it[place] of [place] 4[place].2.[place] [phone] Az dical nal [address] [place] [address] 2019-10-10 2019-10-10 Outpatient [facility] [id number] Univers 16:00:00 16:00:00 ADRIENNE ity of [facility] 2019-10-10 2019-10-10 Telemedici [facility] 1.2.840.114 [id number] Univers 08:26:42 08:46:42 ne Visit Adrienne Flores 350.1.13.10 it[place] 4[place]2.[place].2.[place] [phone] Az dical nal 044 [facility] 2019-10-05 2019-10-05 [facility] 1.2.840.114 [id number] Univers 00:00:00 00:00:00 Secure Msg Adrienne Flores 350.1.13.10 it[place].2.[place] [phone] Az dical nal 044 [facility] 2019-09-22 2019-09-22 Outpatient R MIRANDA TAN [facility] 10 [id number] Univers 09:00:00 09:00:00 MIRANDA TAN i ty of [facility] 2019-09-16 2019-09-16 Refill Bernadine [facility] 1.2.840.114 [id number] Univers 00:00:00 00:00:00 Suze Flores 350.1.13.10 ity [place] 4[place].2.[place] [phone] [facility] 188 [facility] 2019-09-15 2019-09-15 Office [facility] 1.2.840.114 [id number] Univers 07:52:31 08:52:49 Visit Adrienne Flores 350.1.13.10 i ty of [place] 4[place]2.7.2.[place] [phone] Az dical [facility] 044 [facility] 2019-09-15 2019-09-15 Outpatient [facility] [id number] Univers 08:00:00 08:00:00 ADRIENNE montano [facility] 2019-09-15 2019-09-15 Orders Doctor JW 1.2.840.114 [id number] Univers 00:00:00 00:00:00 Only Unassigned, OCTAVIO 350.1.13.10 ity of [place] [facility] 4.2.7.2.686 Eyad as [phone] [address] 2019-08-18 2019-08-18 [facility] 1.2.840.114 [id number] Univers 00:00:00 00:00:00 Secure Msg Adrienne Flores 350.1.13.10 ity of [place] 4[place].2.[place] [phone] [facility] 044 [facility] 2019-08-16 2019-08-16 Outpatient [facility] [id number] Univers 15:40:00 15:40:00 ADRIENNE montano [facility] 2019-08-15 2019-08-15 Patient [facility] 1.2.840.114 [id number] Univers 00:00:00 00:00:00 Secure Msg Adrienne Flores 350.1.13.10 it[place].2.[place] [phone] Az dical nal 044 [facility] 2019-08-05 2019-08-05 Office Thomas, [facility] 1.2.840.114 [id number] Univers 09:33:16 10:14:31 Visit [facility] 350.1.13.10 it y of Surgical 4.2.7.2.686 Eyad as Specialti [phone] Az dical es [address] [facility] 2019-08-05 2019-08-05 Urgent Provider, [facility] 1.2.840.114 [id number] Univers 08:24:42 08:44:42 [facility] 350.1.13.10 ity of [place] 4.2.7.2.686 Eyad as Professio [phone] Az dical nal 044 [facility] 2019-08-05 2019-08-05 Outpatient R [facility] [id number] Univers 08:20:00 08:20:00 ity of [facility] 2019-07-19 2019-07-19 Patient [facility] 1.2.840.114 [id number] Univers 00:00:00 00:00:00 Secure Msg [facility] 350.1.13.10 ity of [place] 4.2.7.2.686 Eyad as Professio [phone] Az dical nal 044 [facility] One 2019-07-16 2019-07-16 Marie Santiago [facility] 1.2.840.114 [id number] Univers 00:00:00 00:00:00 C [place] 350.1.13.10 i ty [place].2.[place] [phone] Az dical nal 044 [facility] 2019-06-30 2019-06-30 Telephone [facility] 1.2.647.744 [id number] Univers 00:00:00 00:00:00 Miranda Flores 350.1.13.10 i ty of [place].2.[place] [phone] Az dical nal 085 [facility] 2019-06-17 2019-06-17 Outpatient R MIRANDA TAN [facility] 10 [id number] Univers 15:40:00 15:40:00 MIRANDA TAN i ty of [facility] 2019-06-17 2019-06-17 Telemedici Britney [facility] 1.2.840.114 [id number] Univers 08:14:12 08:34:12 ne Visit Tikachase [place] 350.1.13.10 ity of [place].2.[place] [phone] Az dical nal 085 [facility] 2019-06-03 2019-06-03 Outpatient [facility] [id number] Univers 16:00:00 16:00:00 JIM ity [facility] 2019-05-31 2019-05-31 Patient [facility] 1.2.840.114 [id number] Univers 00:00:00 00:00:00 Secure Msg [facility] 350.1.13.10 ity of [place] 4.2.7.2.686 Eyad as Professio [phone] Az dical [facility] [address] [facility] 2019-04-29 2019-04-29 Office [facility] 1.2.840.114 [id number] Univers 16:32:50 16:56:43 Visit Adrienne [place] 350.1.13.10 i ty of [place] 4[place].7.2.[place] [phone] Az dical nal 044 [facility] 2019-04-29 2019-04-29 Outpatient [facility] [id number] Univers 16:00:00 16:00:00 [facility] 2019-04-21 2019-04-21 Patient Doctor [facility] 1.2.840.114 [id number] Univers 00:00:00 00:00:00 Secure Msg Unassigned, Health 350.1.13.10 ity of [place] [facility] 4.2.7.2.686 Eyad as Specialti [phone] Az dical es [address] [facility] 2019-04-14 2019-04-14 Outpatient R [facility] [id number] Univers 14:36:57 23:59:00 MOON montano [facility] 2019-04-14 2019-04-14 Outpatient R [facility] [id number] Univers 14:36:57 23:59:00 MOON itluly [facility] 2019-04-14 2019-04-14 [facility] 1.2.840.114 [id number] Univers 14:36:00 23:59:00 Encounter [place] 350.1.13.10 [place] [phone] [facility] [address] 2019-04-08 2019-04-08 Telephone JW Pruett 1.2.840.114 [id number] Univers 00:00:00 00:00:00 Jim [place] 350.1.13.10 it y of HOSPITAL 4.2.7.2.686 Eyad as [phone] [facility] [address] 2019-04-08 2019-04-08 [facility] 1.2.840.114 [id number] Univers 00:00:00 00:00:00 Management Suze Flores 350.1.13.10 [place] [phone] Az dical nal 204 [facility] 2019-03-25 2019-04-07 [facility] 1.2.840.114 [id number] Univers 13:09:56 16:46:03 Visit Jim Mark 350.1.13.10 i [place] [phone] Me dical nal 204 [facility] 2019-04-07 2019-04-07 Telephone [facility] 1.2.840.114 [id number] Univers 00:00:00 00:00:00 Moon Verma [facility] 350.1.13.10 it y of Surgical 4.2.7.2.686 Eyad as Specialti [phone] Az dical es [address] [facility] 2019-04-07 2019-04-07 Telephone JW Pruett 1.2.840.114 [id number] Univers 00:00:00 00:00:00 Jim OCTAVIO 350.1.13.10 it y of HOSPITAL 4.2.7.2.686 Eyad as [phone] [address] 2019-04-07 2019-04-07 Refill JW Pruett 1.2.840.114 [id number] Univers 00:00:00 00:00:00 Jim OCTAVIO 350.1.13.10 it y of [facility] 4.2.7.2.686 Eyad as [id number] [address] 2019-04-05 2019-04-05 Patient Doctor ЮЛИЯ [id number] Univers 00:00:00 00:00:00 Secure Msg Unassigned, Y HEALTH [id number] ity of [place] [facility] [id number] [phone] [facility] [address] 2019-04-01 2019-04-01 Telephone Nickolas [facility] [id number] Univers 00:00:00 00:00:00 Jim [place] [id number] [id number] [phone] [place] dical nal 204 [facility] 2019-03-28 2019-03-28 Telephone [facility] [id number] Univers 00:00:00 00:00:00 [facility] [id number] it y of Surgical [id number] Eyad as Specialti [phone] Me dical es [address] [facility] 2019-03-25 2019-03-25 Office [facility] [id number] Univers 10:49:13 11:48:02 Visit Moon [email or web address] [id number] it y of Surgical [id number] Eyad as Specialti [phone] Me dical es 198 [facility] 2019-03-25 2019-03-25 Orders Doctor JW [id number] Univers 00:00:00 00:00:00 Only Unassigned, OCTAVIO [id number] ity of [place] [facility] [id number] Eyad as [phone] [facility] [address] Results This patient has no known results.
--- NOTE | 2021-12-10 05:11 | EDPHYS ---
Physician Documentation [facility] Name: Landry Chamberlain Jr Age: 61 yrs Sex: Male : 1960 Arrival Date: 12/10/2021 Time: 04:08 Bed 6 Private MD: ED Physician Du Leach HPI: 12/10 04:22 This 61 yrs old Male presents to ER via Wheelchair with complaints of Breathing rn Difficulty. 04:22 The patient has shortness of breath at rest, with light activity. Onset: The rn symptoms/episode began/occurred yesterday. Duration: The symptoms are intermittent. The patient's shortness of breath is aggravated by exertion, light activity, is alleviated by rest, sitting up. Associated signs and symptoms: Pertinent positives: chest pain, non-productive cough, chills, runny nose, Pertinent negatives: diaphoresis, hemoptysis, visual changes, vomiting. Severity of symptoms: At their worst the symptoms were mild in the emergency department the symptoms are unchanged. The patient has not experienced similar symptoms in the past. The patient has not recently seen a physician. Pt reports cough, congestion, sob with exertion, hurts right chest with deep breath, + smoker, no hx of DVT/PE. CP only when he breathes. REports chills and hot/cold feeling, didn't check temp, but states feels sick and like has sinus infection.. Historical: - Allergies: 04:21 Ragweed; aa9 - Home Meds: 04:21 phentermine 37.5 mg oral tab 1 tab once daily for ADHD [Active]; Vitamin D Oral 50,000 aa9 unit once a week [Active]; - PMHx: 04:21 adhd; Anxiety; enlarged prostate; Migraine; aa9 - PSHx: 04:21 Appendectomy; Left Hip replacement; aa9 - Immunization history:: Client reports receiving the 2nd dose of the Covid vaccine. - Social history:: Smoking status: Patient denies any tobacco usage or history of. - Family history:: not pertinent. - Hospitalizations: : No recent hospitalization is reported. ROS: 04:22 Constitutional: Negative for fever, chills, and weight loss, Eyes: Negative for injury, rn pain, redness, and discharge, ENT: + nasal congestion Neck: Negative for injury, pain, and swelling, Cardiovascular: Negative for chest pain, palpitations, and edema, Respiratory: Negative for wheezing Abdomen/GI: Negative for abdominal pain, nausea, vomiting, diarrhea, and constipation, Back: Negative for injury and pain, MS/Extremity: Negative for injury and deformity, Skin: Negative for injury, rash, and discoloration, Neuro: Negative for numbness, tingling, and seizure. Exam: 04:22 Constitutional: This is a well developed, well nourished patient who is awake, alert, rn and in no acute distress. Head/Face: Normocephalic, atraumatic. Eyes: Lids and lashes normal. Conjunctiva and sclera are non-icteric and not injected. Cornea within normal limits. Periorbital areas with no swelling, redness, or edema. ENT: + nasal congestion, no stridor Cardiovascular: Regular rate and rhythm. No pulse deficits. Respiratory: Clear bilateral breath sounds, slightly diminished at bases. No increased work of breathing, no retractions or nasal flaring. Skin: Warm, dry MS/ Extremity: Pulses equal, no cyanosis. Neuro: Awake and alert, GCS 15 04:58 ECG was reviewed by the Attending Physician. rn Vital Signs: 04:18 BP 143 / 91; Pulse 96; Resp 20 S; Pulse Ox 97% on R/A; Weight 111.13 kg; Height 6 ft. 1 aa9 in. (185.42 cm); Pain 6/10; 04:27 Temp 99.5(O); aa9 04:18 Body Mass Index 32.32 (111.13 kg, 185.42 cm) aa9 MDM: 04:10 Patient medically screened. rn 05:10 Differential diagnosis: Bronchitis pneumonia, Pneumothorax influenza, covid. Data rn reviewed: vital signs, nurses notes, lab test result(s), radiologic studies, plain films, and as a result, I will discharge patient. Counseling: I had a detailed discussion with the patient and/or guardian regarding: the historical points, exam findings, and any diagnostic results supporting the discharge/admit diagnosis, lab results, radiology results, the need for outpatient follow up, to return to the emergency department if symptoms worsen or persist or if there are any questions or concerns that arise at home. Response to treatment: There is no appreciated change of the patient's symptoms at this time, and as a result, I will discharge patient. Special discussion: I discussed with the patient/guardian in detail that at this point there is no indication for admission to the hospital. It is understood, however, that if the symptoms persist or worsen the patient needs to return immediately for re-evaluation. Based on the history and exam findings, there is no indication for further emergent testing or inpatient evaluation. I discussed with the patient/guardian the need to see the primary care provider for further evaluation of the symptoms. 12/10 04:21 Order name: Flu; Complete Time: 05:09 rn 12/10 04:21 Order name: SARS-COV-2 RT PCR (Document "Date of Onset" if Symptomatic); Complete Time: rn 05:27 12/10 04:21 Order name: XRAY Chest Pa And Lat (2 Views); Complete Time: 03:19 rn 12/10 04:21 Order name: EKG; Complete Time: 04:22 rn 12/10 04:21 Order name: EKG - Nurse/Tech; Complete Time: 04:59 rn EC:58 Rate is 91 beats/min. Rhythm is regular. QRS [place] is Normal. [place] interval is normal. QRS rn interval is normal. QT interval is normal. No Q waves. T waves are Normal. No ST changes noted. Clinical impression: Normal ECG. Interpreted by me. Reviewed by me. Administered Medications: 05:18 Drug: Tamiflu (oseltamivir) 75 mg Route: PO; kd3 05:22 Follow up: Response: No adverse reaction kd3 Disposition Summary: 12/10/21 05:11 Discharge Ordered Location: Home rn Problem: new rn Symptoms: have improved rn Condition: Stable rn Diagnosis - Influenza due to identified novel influenza A virus with other respiratory rn manifestations Followup: rn - With: Private Physician - When: As needed - Reason: Recheck today's complaints, Re-evaluation by your physician Discharge Instructions: - Discharge Summary Sheet rn - Influenza, Adult rn Forms: - Medication Reconciliation Form rn - Thank You Letter rn - Antibiotic field kiln burner - Prescription Opioid Use rn - Work release form kd3 Prescriptions: - Tamiflu 75 mg Oral Capsule - take 1 capsule by ORAL route every 12 hours for 5 days; 10 capsule; Refills: 0, rn Product Selection Permitted Signatures: Dispatcher [employer] Du Reis MD MD rn Doucette, Kyli, RN RN kd3 Calderón, Laurita, RN RN aa9
--- NOTE | 2021-12-10 05:11 | ER ---
Nurse's Notes [facility] Name: Landry Chamberlain Jr Age: 61 yrs Sex: Male : 1960 Arrival Date: 12/10/2021 Time: 04:08 Bed 6 Private MD: Diagnosis: Influenza due to identified novel influenza A virus with other respiratory manifestations Presentation: 12/10 04:18 Chief complaint: Patient states: My head feels like its gonna explode, my Right lungs aa9 hurts, I have been feeling like this since yesterday, I though tit was allergies I am also coughing and sneezing. Coronavirus screen: Vaccine status: Patient reports receiving the 2nd dose of the covid vaccine. Ebola Screen: No symptoms or risks identified at this time. Initial Sepsis Screen: Does the patient meet any 2 criteria? No. Patient's initial sepsis screen is negative. Does the patient have a suspected source of infection? No. Patient's initial sepsis screen is negative. Risk Assessment: Do you want to hurt yourself or someone else? Patient reports no desire to harm self or others. Onset of symptoms was November 09, 2021. 04:18 Method Of Arrival: Wheelchair aa9 04:18 Acuity: JESSICA 3 aa9 Triage Assessment: 04:22 General: Appears uncomfortable, ill, Behavior is cooperative, anxious. Pain: Complains aa9 of pain in head, R lung Pain currently is 6 out of 10 on a pain scale. Noted to be resistant to movement. Neuro: Level of Consciousness is awake, alert, obeys commands, Oriented to person, place, time, situation. Cardiovascular: Patient's skin is warm and dry. Respiratory: Reports cough that is Airway is patent Respiratory effort is even, labored, Onset: The symptoms/episode began/occurred yesterday, the patient has moderate shortness of breath. Historical: - Allergies: 04:21 Ragweed; aa9 - Home Meds: 04:21 phentermine 37.5 mg oral tab 1 tab once daily for ADHD [Active]; Vitamin D Oral 50,000 aa9 unit once a week [Active]; - PMHx: 04:21 adhd; Anxiety; enlarged prostate; Migraine; aa9 - PSHx: 04:21 Appendectomy; Left Hip replacement; aa9 - Immunization history:: Client reports receiving the 2nd dose of the Covid vaccine. - Social history:: Smoking status: Patient denies any tobacco usage or history of. - Family history:: not pertinent. - Hospitalizations: : No recent hospitalization is reported. Screenin:25 Abuse screen: Denies threats or abuse. Denies injuries from another. Nutritional aa9 screening: No deficits noted. Tuberculosis screening: No symptoms or risk factors identified. Fall Risk None identified. Assessment: 05:22 Cardiovascular: Rhythm is regular. Respiratory: Airway is patent Trachea midline kd3 Respiratory effort is even, unlabored, Respiratory pattern is regular, symmetrical. 05:22 Respiratory: Breath sounds are clear bilaterally. kd3 Vital Signs: 04:18 BP 143 / 91; Pulse 96; Resp 20 S; Pulse Ox 97% on R/A; Weight 111.13 kg; Height 6 ft. 1 aa9 in. (185.42 cm); Pain 6/10; 04:27 Temp 99.5(O); aa9 04:18 Body Mass Index 32.32 (111.13 kg, 185.42 cm) aa9 ED Course: 04:08 Patient arrived in ED. ja2 04:09 Du Leach MD is Attending Physician. rn 04:19 Triage completed. aa9 04:21 Fernando Wick RN is Primary Nurse. as6 04:24 Arm band placed on. aa9 04:25 Allergy band placed. Bed in low position. Pulse ox on. NIBP on. aa9 04:40 SARS-COV-2 RT PCR (Document "Date of Onset" if Symptomatic) Sent. as6 04:40 Flu Sent. as6 04:49 XRAY Chest Pa And Lat (2 Views) In Process Unspecified. EDMS 05:22 No provider procedures requiring assistance completed. Patient did not have IV access kd3 during this emergency room visit. Administered Medications: 05:18 Drug: Tamiflu (oseltamivir) 75 mg Route: PO; kd3 05:22 Follow up: Response: No adverse reaction kd3 Medication: 04:25 VIS not applicable for this client. aa9 Outcome: 05:11 Discharge ordered by . rn 05:22 Discharged to home ambulatory. kd3 05:22 Condition: stable 05:22 Discharge instructions given to patient, Instructed on discharge instructions, follow up and referral plans. medication usage, Demonstrated understanding of instructions, follow-up care, medications, Prescriptions given X 1. 05:23 Patient left the ED. kd3 Signatures: Dispatcher [employer] EDMS Du Leach MD MD rn Alexander, Jessica ja2 Slawson, Ashby, RN RN as6 Agueda Chino RN RN kd3 Laurita Calderón RN RN aa9
[2021-12-10] MEDS ORDERED: OSELTAMIVIR 75 MG CAP ONE (05:14)
[2021-12-10 05:27] VITALS: BP 143/91; O2SAT 97
[2021-12-10 05:28] VITALS: TEMP 99.5
--- NOTE | 2021-12-10 12:38 | RAD REPORT ---
EXAM DESCRIPTION: XR Chest, 2 Views CLINICAL HISTORY: The patient is 61 years old and is Male; cough TECHNIQUE: Frontal and lateral views of the chest. COMPARISON: No relevant prior studies available. FINDINGS: Lungs: Unremarkable. No consolidation. Pleural space: Unremarkable. No pneumothorax. Heart: Unremarkable. Mediastinum: Unremarkable. Bones/joints: Unremarkable. IMPRESSION: No acute findings in the chest. Electronically signed by: Levar Salinas MD 12/10/2021 4:56 AM CDT Due to temporary technical issues with the PACS/Fluency reporting system, reports are being signed by the in house radiologists without review as a courtesy to insure prompt reporting. The interpreting radiologist is fully responsible for the content of the report.
--- NOTE | 2021-12-10 14:01 | EKG ---
Test Date: 2021-12-10 Test Time: 04:58:45 Landmen: RHONDA MEASUREMENT RESULTS: Intervals: Rate: 92 NV: 178 QRSD: 98 QT: 342 QTc: 422 [place]: P: 59 NV: 178 QRS: 24 T: 55 INTERPRETIVE STATEMENTS: Poor data quality, interpretation may be adversely affected Sinus rhythm with fusion complexes Otherwise normal ECG Compared to ECG 09/21/2021 14:57:09 Fusion complex(es) now present Electronically Signed On 12-10-21 14:00:23 CDT by Eric Camp
--- NOTE | 2021-12-10 14:01 | EKG ---
Test Date: 2021-12-10 Test Time: 04:59:27 [employer] Worker: RHONDA MEASUREMENT RESULTS: Intervals: Rate: 91 [place]: 174 QRSD: 106 QT: 346 QTc: 425 [place]: P: 56 [place]: 174 QRS: 24 T: 69 INTERPRETIVE STATEMENTS: Normal sinus rhythm Normal ECG Compared to ECG 12/10/2021 04:58:45 Fusion complex(es) no longer present Electronically Signed On 12-10-21 14:00:19 CDT by Eric Camp
== END 2021-12-10 05:23 | disposition home or self-care (01) ==
LOC: ER 04:07
DX: J10.1 Influenza due to other identified influenza virus with other respiratory manifestations (principal); Z20.822 Contact with and (suspected) exposure to COVID-19; Z96.642 Presence of left artificial hip joint; F41.9 Anxiety disorder, unspecified
CPT/HCPCS: 93005 ×2; 87804 ×2; 71046; 99284; U0003